=== PATIENT | male | born 1990 | race Hispanic/Latino ===

== ENCOUNTER 2018-08-22 09:26 | Emergency (ER) | payer OTHER ==
[~2018-08-22] VITALS: Ht 160 cm; Wt 74.4 kg
--- NOTE | 2018-08-22 13:48 | Diagnostic Imaging Report ---
Exam: Left foot 2 views, left ankle 2 views History: Status post fall, sprained ankle, twisted ankle Comparison: None. Findings: Foot: No acute, displaced fracture or dislocation. Appropriate alignment between the medial cuneiform and second metatarsal base in keeping with an intact Lisfranc ligament. Joint spaces are well-maintained. Soft tissues are unremarkable. Ankle: No acute, displaced fracture or dislocation. Ankle mortise is intact. Tibial plafond and talar dome appear normal. Mild soft tissue swelling about the ankle. Impression: Mild soft tissue swelling along the ankle without underlying acute osseous abnormality. Signed by: Dr. Tomasz Grayson M.D. on 08/22/2018 1:44 PM
[2018-08-22 15:26] VITALS: BP 146/97
== END 2018-08-22 15:35 | disposition home or self-care (01) ==
LOC: ER 09:26
DX: S93.492A Sprain of other ligament of left ankle, initial encounter (principal); Y93.61 Activity, american tackle football; Y92.321 Football field as the place of occurrence of the external cause
CPT/HCPCS: 99283